=== PATIENT | female | born 1945 | race Caucasian/White ===

== ENCOUNTER 2024-09-14 10:18 | Emergency (ER) | payer OTHER, SELFPAY ==
[2024-09-14 10:26] VITALS: BP 157/92
--- NOTE | 2024-09-14 11:11 | ED.GENMED ---
History of Present Illness
General
Chief Complaint: Musculo-Skeletal Complaint
Source: patient
Exam Limitations: none
Time Seen by Provider: 09/14/24 10:41
Nursing documentation reviewed up to this point in time: agreed with
History of Present Illness
History of Present Illness:
Patient is a 79-year-old female with history hypertension who presents with a burning sensation in the hip and leg area. The inital problem began after a fall in May, during which she sustained a pelvic fracture on the left side. She has been
following with Dr. Jacobs and was told the fracture was healing after six to eight weeks, but subsequent imaging four weeks ago revealed likely additional fractures on the opposite side. Despite being advised to get a CT scan, the patient decided
to wait and began taking calcium supplements from [facility].
She reports that over the past few weeks she experiences burning pain, primarily with weight-bearing activities, although it persists when lying down. The burning sensation is also present in the buttocks and thighs and intensifies with movement.
The patient states the burning is 'very uncomfortable' and feels 'deep' with some skin involvement. She describes the pains progression as worsening over the last two weeks, although she wakes up feeling normal before it intensifies through the day.
The patient has not experienced any additional trauma. She takes Aleve (naproxen) for pain with minimal relief and denies any numbness or tingling. She denies any weakness in lower extremities. She expresses an interest in obtaining a CT scan to
verify the fractures. She states that she canceled her follow-up appointment this past week with the orthopedic office as she was 'not interested in additional x-rays'.
Review of Systems
Review of Systems
Allergies reviewed?: Yes
All Other Systems: ROS reviewed and negative except as documented in HPI and ROS
Phy Exam
Physical Exam
Physical Exam:
Vitals: Hypertensive and mildly tachycardic on arrival although improved by my assessment. Afebrile
General: Patient is well appearing, no acute distress. Nontoxic appearing
Skin: Warm and dry, no rashes or lesions. No erythema, warmth, or lymphangitic streaking
Head: Normocephalic, atraumatic
Eyes: Sclera nonicteric.
Throat: Protecting airway
Neck: Normal ROM, no cervical spine tenderness, no meningismus
Cardiac: Regular rate and rhythm, no murmurs.
Pulm: Normal respiratory effort, no wheezes, rales, rhonchi heard on exam
Abdomen: Abdomen soft and nontender. No abdominal tenderness. No palpable mass in bilateral inguinal region
Extremities: Bilateral lower extremities without any obvious deformity. She has no bony tenderness of the pelvis or hips bilaterally and excellent range of motion including internal/external rotation of bilateral lower extremities. Sensation
intact with palpable distal pulses in bilateral lower extremities and normal sensation. Cap refill WNL. No erythema, warmth, or rash of buttocks or lower extremities bilaterally. Straight leg raise negative bilaterally
Neuro: AAOx3. Grossly intact
Psychiatric: Normal affect.
Course
Orders/Labs/Results
Orders:
Orders
09/14/24 11:[address] [CT Pelvis W/o Iv Contrast] Urgent
Comment: recent pelvis fracture
Reason For Exam: worsening b/l hip pain
Vital Signs
Initial and Last Documented VS:
Initial Vital Signs
Temp Pulse Resp BP Pulse Ox
97.9 F 110 18 157/92 99
09/14/24 10:26 09/14/24 10:26 09/14/24 10:26 09/14/24 10:26 09/14/24 10:26
Last Documented Vital Signs
Temp Pulse Resp BP Pulse Ox
97.9 F 110 20 156/84 100
09/14/24 10:26 09/14/24 10:09/14/24 13:25 09/14/24 13:09/14/24 13:25
MDM/Problems Addressed
Differential Diagnosis Includes:
Not limited to: Pelvic stress fractures, sciatic nerve irritation, neuropathic pain syndrome, osteoarthritis, muscle strain, etc.
MDM/Problems Addressed:
A 79-year-old female presents with burning discomfort in bilateral lower extremities, worse with ambulation, following previous pelvic fractures sustained during a fall approximately 3 months ago. The patient denies additional recent trauma,
weakness, or numbness. No infectious symptoms such as fever, chills. She is able to weight-bear and has excellent range of motion. Vitals and physical exam as above. No obvious abnormality of bilateral lower extremity and excellent range of
motion. Bilateral lower extremities neurovascularly intact. Given prior recommendation by orthopedics and new lower extremity 'burning pain' in setting of recent pelvic fracture/will obtain pelvic CT. Patient declines any analgesia at this time.
Update: CT reveals subacute fractures of sacrum, bilateral inferior pubic rami, bilateral superior pubic rami/anterior acetabulum without evidence of any acute fractures. Discussed with orthopedic on-call, Dr. Amaro. Overall suspicion is likely
neuropathic pain related to healing pelvic fractures. There is no evidence of new injury or infection. At this point�feel stable for discharge home with continued orthopedic follow-up outpatient. She can continue to weight-bear as tolerated.
Will start gabapentin for suspected neuropathic pain. Strict return precautions discussed. Patient stable for discharge home.
Chronic conditions affecting care:
Recent pelvic fractures
Acute Exacerbation and/or Progression of Chronic Illness:
Subacute fractures of sacrum, bilateral inferior pubic rami, bilateral superior pubic rami/anterior acetabulum
*Radiology
Radiology exam reviewed: radiology read reviewed
*Pulse Oximetry
SaO2: 99
Oxygen Mode of Delivery: Room air
Patient hypoxic: no
*EKG
Interpreted by ED Provider?: NA
*Oxyacetylene Torch Operator Interpretation
Rate: Oxyacetylene Torch Operator- N/A
*Critical Care Note
Total Time (30-74mins, 75-104mins- exclusive of procedures): Not Applicable
Patient Management
Discussion with other providers: Real Estate Executive Assistant (Case discussed with orthopedic)
Escalation/DeEscalation of care consider admission/obs:
Admit not indicated
ED Attending Note
-
Portions of this chart may have been created with voice recognition software.� Occasional wrong word or��sound alike� substitutions may have occurred due to the inherent limitations of voice recognition software.
Discharge Plan
Departure
Patient Disposition: Home (Routine Discharge)
Date of Disposition: 09/14/24
Time of Disposition: 13:18
Patient with high blood pressure during this ER visit?: Yes
Condition: Good
Discharge Problem:
Neuropathic pain, leg, Subacute fractures of pelvis
Instructions: Neuropathic pain, BLOOD PRESSURE
Prescriptions:
New
gabapentin 100 mg capsule
100 mg PO TID Qty: 14 0RF
Rx Instructions:
Take 100mg HS, can increase to TID as tolerated
No Action
losartan 25 MG tablet
25 mg PO DAILY
sennosides [senna] 1 TABLET tablet
2 tab PO BID 0RF
acetaminophen 325 MG tablet
650 mg PO QID 0RF
polyethylene glycol 3350 17 GRAMS powder in packet
17 grams PO DAILY 0RF
aspirin 325 MG tablet,delayed release (DR/EC)
325 mg PO DAILY 0RF
Rx Instructions:
�4 weeks
docusate sodium 100 MG capsule
100 mg PO BID 0RF
oxycodone 5 MG tablet
1 - 2 tab PO Q4HPRN PRN (Reason: moderate�severe pain) Qty: 75 0RF
naproxen sodium [Aleve] 220 MG tablet
220 mg PO BID Qty: 0 0RF
Referrals:
NONE,* [Family Provider, Internal Medicine]
Wilfredo Jacobs MD [Active, Orthopedics] - Next open appointment
Activity Restrictions/Additional Instructions:
RETURN TO THE EMERGENCY DEPARTMENT WITH ANY FEVER, CHILLS, SIGNIFICANT REDNESS, WARMTH OF PELVIC REGION, NUMBNESS/TINGLING OR WEAKNESS IN LOWER EXTREMITIES, INABILITY TO WEIGHT-BEAR, OR ANY OTHER CONCERNS
- As discussed�your CT scan of your pelvis showed multiple subacute fractures. You may be experiencing neuropathic pain.
- You can continue to weight-bear as tolerated.
- A prescription for gabapentin has been sent to your pharmacy. Please take this once a day and you can increase to 3 times a day as tolerated. This may cause drowsiness. You can continue to take Tylenol and/or Motrin as needed for discomfort
- Follow-up with orthopedics for further evaluation/management of pelvic fractures. Please call Dr. Jacobs's office today to schedule follow-up
Monitor your symptoms closely and return to the emergency department with any acute worsening/new symptoms or any signs of infection
Interventions
Interventions:
*Risk Screen - Suicide Last Done: 09/14/24 11:57
*General Assessment Last Done: 09/14/24 10:26
*Neglect/Abuse Screening Last Done: 09/14/24 10:26
*ED- Fall Risk Assessment Last Done: 09/14/24 10:26
*ED COVID-19 Vaccine History Last Done: 09/14/24 10:26
*Nursing Disposition Last Done: 09/14/24 13:25
ED-Musculoskeletal Assessment Last Done: 09/14/24 11:57
Discharge Date and Time
Discharge Date/Time: 09/14/24 13:29
Print Language: [email or web address]
[2024-09-14 11:56] VITALS: BP 155/89
[2024-09-14 11:57] VITALS: BMI 27.4
[2024-09-14 12:00] VITALS: BP 156/84
[2024-09-14 13:25] VITALS: BP 156/84
== END 2024-09-14 13:29 | disposition home or self-care (01) ==
LOC: EMR 10:18
PROVIDERS: EMERGENCY PHYSICIAN Emergency Medicine
DX: M79.2 Neuralgia and neuritis, unspecified (principal); S32.9XXA Fracture of unspecified parts of lumbosacral spine and pelvis, initial encounter for closed fracture; X58.XXXA Exposure to other specified factors, initial encounter; I10 Essential (primary) hypertension; Z96.643 Presence of artificial hip joint, bilateral
CPT/HCPCS: 99284; 72192

== ENCOUNTER → 2024-11-23 10:29 | Outpatient (REF) | payer OTHER, SELFPAY | LOC: HWRAD 10:29 | PROVIDERS: ATTENDING PHYSICIAN Specialist Research Data Abstracter/Coder | DX: M84.40XA Pathological fracture, unspecified site, initial encounter for fracture (principal) | CPT/HCPCS: 77080 ==

== ENCOUNTER → 2025-01-07 13:07 | Outpatient (REF) | payer OTHER, SELFPAY | LOC: HWRAD 13:07 | PROVIDERS: ATTENDING PHYSICIAN Specialist Research Data Abstracter/Coder | DX: M79.2 Neuralgia and neuritis, unspecified (principal) | CPT/HCPCS: 72131 ==

== ENCOUNTER 2025-01-09 09:43 | Outpatient (RCR) | payer OTHER, SELFPAY ==
[2025-01-09 10:02] VITALS: BP 177/86
[2025-01-09] MEDS: EVENITY 105 MG SC ×2 (10:26)
== END 2025-01-10 11:37 | disposition home or self-care (01) ==
LOC: OID 09:43
PROVIDERS: ATTENDING PHYSICIAN Internal Medicine Endocrinology, Diabetes & Metabolism
DX: M81.0 Age-related osteoporosis without current pathological fracture (principal)
CPT/HCPCS: 96372; J3111

== ENCOUNTER 2025-02-11 09:47 | Outpatient (RCR) | payer OTHER, SELFPAY ==
[2025-02-11 09:55] VITALS: BP 169/80
[2025-02-11] MEDS: EVENITY 105 MG SC ×2 (10:07→10:08)
== END 2025-02-12 08:20 | disposition home or self-care (01) ==
LOC: OID 09:47
PROVIDERS: ATTENDING PHYSICIAN Internal Medicine Endocrinology, Diabetes & Metabolism
DX: M81.0 Age-related osteoporosis without current pathological fracture (principal)
CPT/HCPCS: 96372; J3111

== ENCOUNTER 2025-03-11 10:34 | Outpatient (RCR) | payer OTHER, SELFPAY ==
[2025-03-11 10:58] VITALS: BP 149/63
[2025-03-11] MEDS: EVENITY 105 MG SC ×2 (11:05)
== END 2025-03-12 09:35 | disposition home or self-care (01) ==
LOC: OID 10:34
PROVIDERS: ATTENDING PHYSICIAN Internal Medicine Endocrinology, Diabetes & Metabolism
DX: M81.0 Age-related osteoporosis without current pathological fracture (principal)
CPT/HCPCS: 96372; J3111